=== PATIENT | male | born 1945 | race Caucasian/White ===

== ENCOUNTER 2025-01-16 18:44 | Emergency (ER) | payer MEDICARE, SELFPAY ==
[2025-01-16] VITALS (8 sets, daily range): BP systolic 137–171; BP diastolic 68–104; BMI 25.1
[2025-01-16] MEDS: NSS 1000 IV (20:21)
[2025-01-16 20:38] LABS: % Basophils 0.5 % (0-2); % Eosinophils 1.3 % (0-6); % Immature Granulocytes 0.3 % (0-0.5); % Lymphocytes 24.2 % (20.5-51.1); % Monocytes 7.3 % (1.7-9.3); % Neutrophils 66.4 % (42.2-75.2); Absolute Eosinophils 0.1 10^3/uL (0-0.7); Absolute Lymphocytes 2.1 10^3/uL (1.2-3.4); Absolute Monocytes 0.6 10^3/uL (0.1-0.6); Absolute Neutrophils 5.9 10^3/uL (1.4-6.5); Hematocrit 42.7 % (39.0-52.0); Hemoglobin 14.9 g/dL (13.0-18.0); Mean Corp Hgb Conc. 34.9 g/dL (33.0-37.0); Mean Corpuscular Hgb 30.7 pg (27.0-31.0); Nucleated Red Blood Cells % 0 % (-); Platelet Count 127 10^3/uL (130-400); Red Blood Cell Count 4.85 10^6/uL (4.70-6.10); Red Cell Dist. Width 12.1 % (11.5-14.5); White Blood Cell Count 8.8 10^3/uL (4.8-10.8)
[2025-01-16 20:43] LABS: Urine Albumin 3+ (Neg - Trace); Urine Bilirubin Negative (Negative); Urine Character Slightly Cloudy (Clear); Urine Color Amber; Urine Glucose Negative (Negative); Urine Ketone Negative (Negative); Urine Leukocyte 1+ (Negative); Urine Nitrite Negative (Negative); Urine Occult Blood 4+ (Negative); Urine Specific Gravity 1.015 (<1.030); Urine Urobilinogen 1+ (Neg - 1+)
--- NOTE | 2025-01-16 20:43 | ED.GENMED ---
History of Present Illness
General
Chief Complaint: Urinary Symptoms
Time Seen by Provider: 01/16/25 19:52
History of Present Illness
History of Present Illness:
79-year-old male with history of A-fib on Eliquis presenting for hematuria. Patient reports symptoms started today. Denies any issues with bleeding on thinners in the past. Does have history of kidney stones, however denies any back pain or
abdominal pain. Denies any weakness or lightheadedness. Denies dysuria. Denies chest pain or difficulty breathing. Denies any fever. Reports that the urine is bright red. Denies any additional acute medical complaints
Past History
Past History
ED Past Medical History: Arrthythmia (Atrial fib), HTN and Hypercholesterolemia
ED Past Surgical History: Cardiac (pacemaker)
Social History
Tobacco: Former smoker
Alcohol: Occasional
Personal:
Living: with family
Phy Exam
Physical Exam
Physical Exam:
General: Well-appearing, no clinical signs of dehydration, nontoxic and in no acute distress
HEENT: protecting airway
Neck: appears supple
CV: Normal heart rate, regular rhythm, no evidence of cyanosis
Resp: No accessory muscle use, no increased work of breathing, lungs clear to auscultation bilaterally
Abd: Soft and non-distended, no tenderness to palpation
Extremities: No deformities, no swelling
Neuro: alert, no focal neurologic deficit
: deferred
Rectal: deferred
Psych: Normal affect
Skin: Intact
Course
Orders/Labs/Results
Orders:
Orders
01/16/25 20:02
0.9% Sodium Chloride 1000 ml [Nss] 1,000 ml IV BOLUS
Renal & Bladder US [US Renal With Bladder] Urgent
Comment:
Reason For Exam: hematuria
01/16/25 20:25
Complete Blood Count/With Diff Urgent
Urinalysis Reflex To Culture Urgent
Date Specimen was Collected: 01/16/25
Time Specimen was Collected: 20:10
Urine Microscopic Reflex Cult Urgent
Urine Culture Urgent
CAMELIA Source: U
Specimen Description:
Date Specimen was Collected: 01/16/25
Time Specimen was Collected: 20:10
01/16/25 20:56
Comprehensive Metabolic Panel Urgent
Abnormal Lab Results
01/16/25 01/16/25
20:25 20:56
Plt Count 127 L 10^3/uL
(130-400)
MPV 12.0 H fL
(7.4-10.4)
BUN 25 H mg/dl
(9-20)
Glucose 118 H mg/dl
(70-99)
Total Protein 5.6 L g/dl
(6.3-8.2)
Ur Occult Blood Reflex 4+ A
(Negative)
Leukocyte Esterase Rfl 1+ A
(Negative)
Urine RBC >100 A /HPF
(0-2)
Urine WBC (Reflex) 11-15 A /HPF
(0-5)
Urine Bacteria (Reflex) Moderate A
(Negative)
Urine Albumin (Reflex) 3+ A
(Neg - Trace)
01/16/25 20:25
01/16/25 20:56
Vital Signs
Initial and Last Documented VS:
Initial Vital Signs
Temp Pulse Resp BP Pulse Ox
98.2 F 78 16 164/84 96
01/16/25 18:47 01/16/25 18:47 01/16/25 18:47 01/16/25 18:47 01/16/25 18:47
Last Documented Vital Signs
Temp Pulse Resp BP Pulse Ox
98.2 F 84 16 162/93 98
01/16/25 18:47 01/16/25 23:02 01/16/25 20:00 01/16/25 23:02 01/16/25 23:02
MDM/Problems Addressed
MDM/Problems Addressed:
79-year-old male with history of A-fib on Eliquis presenting to the emergency department for hematuria. Vital signs on arrival are significant for mild hypertension.
On exam patient is resting comfortably, no acute distress or discomfort. Patient with no hemodynamic instability, low suspicion for any serious hemorrhage. Suspect possibly from anticoagulation versus UTI. Patient without any complaint of
pain, no CVA tenderness, no abdominal pain without concern for kidney stone. Will screen with laboratory analysis and check urinalysis. Will administer IV fluids and attempt to clear patient's urine
23:30 -patient's urine has appropriately cleared. Hemoglobin within normal limits. Bladder ultrasound without any significant acute pathology. Patient has known history of BPH. He remains asymptomatic. He has an appointment coming up with his
urologist on Sunday. Feel stable for discharge. Advised holding his Eliquis tonight, resuming tomorrow as long as urine remains clear. Return precautions discussed and patient verbalized understanding
*Critical Care Note
Total Time (30-74mins, 75-104mins- exclusive of procedures): Not Applicable
ED Attending Note
-
Portions of this chart may have been created with voice recognition software.� Occasional wrong word or��sound alike� substitutions may have occurred due to the inherent limitations of voice recognition software.
Discharge Plan
Departure
Prescriptions:
No Action
atenolol 50 MG tablet
50 mg PO BID
irbesartan 300 MG tablet
300 mg PO DAILY
rosuvastatin [Crestor] 5 MG tablet
5 mg PO .3 TIMES WEEKLY
fenofibrate 160 MG tablet
160 mg PO DAILY
apixaban [Eliquis] 5 MG tablet
5 mg PO BID
valacyclovir 500 MG tablet
1,000 mg PO TID Qty: 42 0RF
Referrals:
Laura Bower MD [Family Provider] -
Interventions
Interventions:
*Risk Screen - Suicide Last Done: 01/16/25 18:47
*General Assessment Last Done: 01/16/25 18:47
*Neglect/Abuse Screening Last Done: 01/16/25 19:57
*ED- Fall Risk Assessment Last Done: 01/16/25 19:57
*ED COVID-19 Vaccine History Last Done: 01/16/25 18:47
ED-Male Genitourinary Assessment Last Done: 01/16/25 19:57
Discharge Date and Time
Print Language: TAMAZIGHT
[2025-01-16 20:57] LABS: Urine Red Blood Cell >100 /HPF (0-2); Urine Squamous Cell 0-2 /LPF (Few)
[2025-01-16 20:58] LABS: Urine Bacteria Moderate (Negative)
[2025-01-16 21:29] LABS: ALT (SGPT) 13 U/L (0-50); AST (SGOT) 17 U/L (17-59); Albumin 3.6 g/dl (3.5-5.0); Alkaline Phosphatase 61 U/L (38-126); Blood Urea Nitrogen 25 mg/dl (9-20); Calcium 9.4 mg/dl (8.4-10.2); Carbon Dioxide 24 mmol/L (22-30); Chloride 107 mmol/L (98-107); Estimated Creatinine Clearance 59 ml/min; Glucose 118 mg/dl (70-99); Potassium 4.1 mmol/L (3.5-5.1); Sodium 138 mmol/L (135-145); Total Protein 5.6 g/dl (6.3-8.2); eGFR > 60.00
== END 2025-01-16 23:55 | disposition home or self-care (01) ==
LOC: EMR 18:44
PROVIDERS: EMERGENCY PHYSICIAN Student in an Organized Health Care Education/Training Program; FAMILY PHYSICIAN Internal Medicine
DX: R31.9 Hematuria, unspecified (principal); I48.91 Unspecified atrial fibrillation; I10 Essential (primary) hypertension; E78.00 Pure hypercholesterolemia, unspecified; N40.0 Benign prostatic hyperplasia without lower urinary tract symptoms; Z79.01 Long term (current) use of anticoagulants; Z87.442 Personal history of urinary calculi; Z87.891 Personal history of nicotine dependence; Z95.0 Presence of cardiac pacemaker
CPT/HCPCS: 99284; 76770; 80053; 81003; 81015; 85025; 87086

== ENCOUNTER 2025-03-21 02:49 | Emergency (ER) | payer MEDICARE, SELFPAY ==
[2025-03-21] MEDS: TORADOL 15 MG IV (03:08)
[2025-03-21] MEDS: ZOFRAN 4 MG IV (03:08)
[2025-03-21 03:31] LABS: % Basophils 0.7 % (0-2); % Eosinophils 1.9 % (0-6); % Immature Granulocytes 0.3 % (0-0.5); % Lymphocytes 37.1 % (20.5-51.1); % Monocytes 6.8 % (1.7-9.3); % Neutrophils 53.2 % (42.2-75.2); Absolute Basophils 0.1 10^3/uL (0-0.2); Absolute Eosinophils 0.2 10^3/uL (0-0.7); Absolute Lymphocytes 4.2 10^3/uL (1.2-3.4); Absolute Monocytes 0.8 10^3/uL (0.1-0.6); Hematocrit 45.9 % (39.0-52.0); Hemoglobin 16.3 g/dL (13.0-18.0); Mean Corp Hgb Conc. 35.5 g/dL (33.0-37.0); Mean Corpuscular Hgb 30.6 pg (27.0-31.0); Mean Corpuscular Volume 86.3 fL (80.0-94.0); Mean Platelet Volume 11.9 fL (7.4-10.4); Nucleated Red Blood Cells % 0 % (-); Platelet Count 195 10^3/uL (130-400); Red Blood Cell Count 5.32 10^6/uL (4.70-6.10); Red Cell Dist. Width 12.7 % (11.5-14.5); White Blood Cell Count 11.3 10^3/uL (4.8-10.8)
[2025-03-21 03:49] LABS: ALT (SGPT) 16 U/L (0-50); AST (SGOT) 19 U/L (17-59); Albumin 4.4 g/dl (3.5-5.0); Alkaline Phosphatase 69 U/L (38-126); Blood Urea Nitrogen 26 mg/dl (9-20); Calcium 9.8 mg/dl (8.4-10.2); Carbon Dioxide 19 mmol/L (22-30); Chloride 110 mmol/L (98-107); Glucose 129 mg/dl (70-99); Potassium 3.7 mmol/L (3.5-5.1); Sodium 140 mmol/L (135-145); Total Bilirubin 1.1 mg/dl (0.2-1.3); Total Protein 6.5 g/dl (6.3-8.2); eGFR > 60.00
[2025-03-21 05:04] VITALS: BP 144/79
[2025-03-21 05:09] VITALS: BMI 25.1
[2025-03-21 06:43] LABS: Urine Albumin 2+ (Neg - Trace); Urine Bilirubin Negative (Negative); Urine Character Clear (Clear); Urine Color Yellow; Urine Glucose Negative (Negative); Urine Ketone Negative (Negative); Urine Leukocyte 1+ (Negative); Urine Nitrite Negative (Negative); Urine Occult Blood 4+ (Negative); Urine Urobilinogen 2+ (Neg - 1+)
[2025-03-21 07:00] LABS: Urine Squamous Cell 0-2 /LPF (Few)
[2025-03-21 07:01] LABS: Urine Bacteria Few (Negative); Urine Red Blood Cell 50-60 /HPF (0-2)
[2025-03-21 07:30] VITALS: BP 145/74
--- NOTE | 2025-03-21 07:35 | ED.GENMED ---
History of Present Illness
General
Chief Complaint: Flank Pain
Source: patient
Exam Limitations: none
Time Seen by Provider: 03/21/25 05:49
History of Present Illness
History of Present Illness:
80-year-old male sudden onset of left flank pain at 2 AM. History of kidney stones. Feels similar. No fever chills or systemic symptoms. No urinary symptoms. Currently pain-free
Past History
Past History
ED Past Medical History: Arrthythmia (Atrial fib), HTN and Hypercholesterolemia
ED Past Surgical History: Cardiac (pacemaker)
Social History
Tobacco: Former smoker
Alcohol: Occasional
Personal:
Living: with family
Review of Systems
Review of Systems
All Other Systems: Not applicable
Constitutional: Denies fever or chills
Phy Exam
Physical Exam
Physical Exam:
GENERAL: Alert and oriented in no apparent distress
EYE: Orbits normal.
NECK: Supple
CARDIAC: Regular rate and rhythm without any obvious murmurs.
LUNGS: Clear breath sounds,normal
ABDOMEN: Soft, without focal tenderness or distention. No CVA tenderness
NEUROLOGICAL: Alert and oriented , grossly non-focal
SKIN: Warm and dry, no rash or lesion, no discoloration, skin intact.
MUSCULOSKELETAL: No edema,no deformity.Good color
PSYCH: Normal and appropriate interaction.
Course
Orders/Labs/Results
Orders:
Orders
03/21/25 02:59
Ketorolac [Toradol] 15 mg .ROUTE .STK-MED ONE
Ondansetron Injectable [Zofran] 4 mg .ROUTE .STK-MED ONE
03/21/25 03:02
CT Abd/pel Without Iv Or Oral Urgent
Comment:
Reason For Exam: left flank pain, hx kidney stones
03/21/25 03:07
Ondansetron Injectable [Zofran] 4 mg IV NOW STA
03/21/25 03:08
Ketorolac [Toradol] 15 mg IV NOW STA
03/21/25 03:11
Complete Blood Count/With Diff Urgent
Comprehensive Metabolic Panel Urgent
03/21/25 06:21
Urinalysis Reflex To Culture Urgent
Date Specimen was Collected: 03/21/25
Time Specimen was Collected: 03:00
Urine Microscopic Reflex Cult Urgent
Urine Culture Urgent
CAMELIA Source: U
Specimen Description:
Date Specimen was Collected: 03/21/25
Time Specimen was Collected: 03:00
03/21/25 07:40
Cefdinir [Omnicef] 300 mg PO NOW STA
Abnormal Lab Results
03/21/25 03/21/25
03:11 06:21
WBC 11.3 H 10^3/uL
(4.8-10.8)
MPV 11.9 H fL
(7.4-10.4)
Absolute Lymphs (auto) 4.2 H 10^3/uL
(1.2-3.4)
Absolute Monos (auto) 0.8 H 10^3/uL
(0.1-0.6)
Chloride 110 H mmol/L
(98-107)
Carbon Dioxide 19 L mmol/L
(22-30)
BUN 26 H mg/dl
(9-20)
Glucose 129 H mg/dl
(70-99)
Ur Occult Blood Reflex 4+ A
(Negative)
Urine Urobilinogen 2+ A
(Neg - 1+)
Leukocyte Esterase Rfl 1+ A
(Negative)
Urine RBC 50-60 A /HPF
(0-2)
Urine Bacteria (Reflex) Few A
(Negative)
Urine Albumin (Reflex) 2+ A
(Neg - Trace)
03/21/25 03:11
03/21/25 03:11
Vital Signs
Initial and Last Documented VS:
Initial Vital Signs
Temp Pulse Resp Pulse Ox
97.7 F 66 24 99
03/21/25 02:54 03/21/25 02:54 03/21/25 02:54 03/21/25 02:54
Last Documented Vital Signs
Temp Pulse Resp BP Pulse Ox
98.8 F 111 16 145/74 97
03/21/25 07:30 03/21/25 07:30 03/21/25 07:30 03/21/25 07:30 03/21/25 07:38
MDM/Problems Addressed
Differential Diagnosis Includes:
Patient with a millimeter proximal ureteral stone with hydronephrosis. Clinically stable. Nothing clinically to support infectious issue. Urinalysis likely negative but a few bacteria. Minimal white count. Results of CT were reviewed with
urology along with the urine results. Continue Flomax pain management. We will cover with antibiotics although likely not infected. Patient remains asymptomatic and comfortable with this approach
*Radiology
Radiology exam reviewed: radiology read reviewed (CT scan 5 x 6 x 6 proximal ureteral stone with moderate hydro nonobstructing stones hepatic density)
*Pulse Oximetry
SaO2: 97
Oxygen Mode of Delivery: Room air
Patient hypoxic: no
*Critical Care Note
Total Time (30-74mins, 75-104mins- exclusive of procedures): Not Applicable
Update Note
Update Note:
Patient was updated. Remained stable and still comfortable with discharge. Copy of CT report given to patient to follow-up hepatic lesion. He is aware of the hemangioma
ED Attending Note
-
Portions of this chart may have been created with voice recognition software.� Occasional wrong word or��sound alike� substitutions may have occurred due to the inherent limitations of voice recognition software.
Discharge Plan
Departure
Patient Disposition: Home (Routine Discharge)
Date of Disposition: 03/21/25
Time of Disposition: 07:37
Patient with high blood pressure during this ER visit?: Yes
Discharge Problem:
Left ureteral kidney stone
Instructions: Kidney Stones (DC), Flank Pain (DC), BLOOD PRESSURE
Prescriptions:
New
hydrocodone-acetaminophen 5-325 mg tablet
1 tab PO Q6H PRN (Reason: Pain) Qty: 14 0RF
cefdinir 300 mg capsule
300 mg PO BID 5 Days Qty: 10 0RF
No Action
atenolol 50 MG tablet
50 mg PO BID
irbesartan 300 MG tablet
300 mg PO DAILY
rosuvastatin [Crestor] 5 MG tablet
5 mg PO .3 TIMES WEEKLY
fenofibrate 160 MG tablet
160 mg PO DAILY
apixaban [Eliquis] 5 MG tablet
5 mg PO BID
valacyclovir 500 MG tablet
1,000 mg PO TID Qty: 42 0RF
Referrals:
Reinaldo Alvarado MD [Active, Urology] - Follow up in 5-7 days
Laura Bower MD [Family Provider, Internal Medicine]
Activity Restrictions/Additional Instructions:
Your prescriptions were sent to your pharmacy
As we discussed, Tylenol or the stronger pain medication as needed
Return immediately with any infectious symptoms or increasing pain
Interventions
Interventions:
*Risk Screen - Suicide Last Done: 03/21/25 02:54
*General Assessment Last Done: 03/21/25 02:54
*Neglect/Abuse Screening Last Done: 03/21/25 04:56
*ED- Fall Risk Assessment Last Done: 03/21/25 04:56
*ED COVID-19 Vaccine History Last Done: 03/21/25 04:56
*Nursing Disposition Last Done: 03/21/25 07:58
CN-Rdxcsx-Rhrtdgntai Assessment Last Done: 03/21/25 04:56
ED-Male Genitourinary Assessment Last Done: 03/21/25 05:01
Discharge Date and Time
Discharge Date/Time: 03/21/25 07:58
Print Language: BULGARIAN
[2025-03-21] MEDS: OMNICEF 300 MG PO (07:49)
== END 2025-03-21 07:58 | disposition home or self-care (01) ==
LOC: EMR 02:49
PROVIDERS: Emergency Medicine; EMERGENCY PHYSICIAN Emergency Medicine; FAMILY PHYSICIAN Internal Medicine
DX: N13.2 Hydronephrosis with renal and ureteral calculous obstruction (principal); I10 Essential (primary) hypertension; Z87.891 Personal history of nicotine dependence; Z87.442 Personal history of urinary calculi
CPT/HCPCS: 99285; 96374; 96375; 74176; 80053; 81003; 81015; 85025; 87086

== ENCOUNTER 2025-03-24 10:29 | Inpatient (IN) | payer MEDICARE, SELFPAY ==
[2025-03-24] VITALS (20 sets, daily range): BP systolic 112–173; BP diastolic 72–102; BMI 24.5
--- NOTE | 2025-03-24 04:07 | ED.GENMED ---
History of Present Illness
General
Chief Complaint: Flank Pain
Source: patient, spouse, previous radiology exam (CT abdomen pelvis March 21 showing 6 mm stone left proximal ureter with mild hydronephrosis. Multiple additional bilateral intrarenal stones.) and previous hospital records (ED visit March 21 when
patient presented with acute left flank pain. CAT scan showing 6 mm proximal left ureteral stone with mild hydronephrosis.)
Exam Limitations: none
Time Seen by Provider: 03/24/25 03:48
Nursing documentation reviewed up to this point in time: agreed with
History of Present Illness
History of Present Illness:
This is an 80-year-old gentleman with history of kidney stones who presented to this ED data analysis intern March 21 with complaints of abrupt onset of left flank pain accompanied with nausea. Pain and nausea resolved after 1 IV dose of Toradol and Zofran.
CAT scan showed a 6 mm proximal left ureteral stone with mild hydronephrosis. There was also note of multiple bilateral intrarenal stones. Labs showed a very mildly elevated white blood cell count, normal renal function. Urinalysis with few
bacteria.
He is chronically maintained on Flomax. He was discharged to home with a prescription for Vicodin for as needed pain as well as cefdinir for potential UTI. Urine culture has since returned negative.
He has an appointment scheduled with urology, Dr. Alvarado at 11 AM today.
Patient has been feeling well until tonight with return of moderate left flank pain accompanied with nausea without vomiting. He has not had a fever. He has been urinating well. No dysuria and urgency and or hematuria.
He took a dose of Vicodin without relief. Since arrival to the ED however admits to moderate improvement but now pain is again returning.
Patient has history of A-fib chronically maintained on Eliquis. History of hypertension, GERD.
Past History
Past History
ED Past Medical History: Arrthythmia (Atrial fib-chronically maintained on Eliquis), GERD, HTN, Hypercholesterolemia and Other (Kidney stones)
ED Past Surgical History: Cardiac (pacemaker) and Other (Hernia repair)
Social History
Tobacco: Former smoker
Alcohol: Occasional
Personal:
Living: with family
Employment: Retired
Family History
Family History: Other (Noncontributory)
Phy Exam
Physical Exam
Physical Exam:
GENERAL: 80-year-old gentleman appears his stated age, bright and alert, pleasant, appears in no acute distress. is accompanying.
EYE: anicteric
NECK: Supple, nontender, no meningismus, no significant adenopathy.
ENT: oral mucosa is moist. No rhinorrhea.
CARDIAC: Regular rate and rhythm. no murmur.
LUNGS: Clear breath sounds bilaterally, no acute respiratory distress, no wheezes/rales/rhonchi
ABDOMEN: Soft, nondistended, without focal tenderness, no r/g, mild left CVA tenderness with percussion only. Normoactive BS.
NEUROLOGICAL: Alert and oriented x3, no focal neuro deficits. Gait is steady.
SKIN: Warm and dry, normal color, skin intact. No rash.
MUSCULOSKELETAL: No C/C/E. peripheral pulses are full and equal b/l. No palpable tenderness.
PSYCH: Normal and appropriate interaction.
Course
Orders/Labs/Results
Orders:
Orders
03/24/25 03:42
Urinalysis Reflex To Culture Urgent
Date Specimen was Collected: 03/24/25
Time Specimen was Collected: 03:42
Urine Microscopic Reflex Cult Urgent
Urine Culture Urgent
CAMELIA Source: U
Specimen Description:
Date Specimen was Collected: 03/24/25
Time Specimen was Collected: 03:42
03/24/25 04:05
CR Abdomen - 2 Views Urgent
Comment:
Reason For Exam: recurrent L flank pain. 6 mm prox L uret stone
Renal & Bladder US [US Renal With Bladder] Urgent
Comment:
Reason For Exam: recurrent L flank pain. Hx 6 mm prox L uret stone
03/24/25 04:18
Basic Metabolic Panel Urgent
03/24/25 04:21
Ketorolac [Toradol] 15 mg .ROUTE .STK-MED ONE
Ondansetron Injectable [Zofran] 4 mg .ROUTE .STK-MED ONE
03/24/25 04:22
Ondansetron Injectable [Zofran] 4 mg IV NOW STA
03/24/25 04:23
Ketorolac [Toradol] 15 mg IV NOW STA
03/24/25 04:34
0.9% Sodium Chloride 500 ml [Nss] 500 ml IV BOLUS
03/24/25 05:00
0.9% Sodium Chloride 500 ml [Nss] 500 ml IV 500 mls/hr
Abnormal Lab Results
03/24/25 03/24/25
03:42 04:18
BUN 32 H mg/dl
(9-20)
Glucose 121 H mg/dl
(70-99)
Ur Occult Blood Reflex 4+ A
(Negative)
Urine Urobilinogen 2+ A
(Neg - 1+)
Urine RBC >100 A /HPF
(0-2)
Urine Bacteria (Reflex) Many A
(Negative)
Urine Albumin (Reflex) 2+ A
(Neg - Trace)
03/24/25 04:18
Vital Signs
Initial and Last Documented VS:
Initial Vital Signs
Temp Pulse Resp BP Pulse Ox
97.8 F 110 22 173/102 98
03/24/25 03:28 03/24/25 03:28 03/24/25 03:28 03/24/25 03:28 03/24/25 03:28
Last Documented Vital Signs
Temp Pulse Resp BP Pulse Ox
97.8 F 78 16 156/79 98
03/24/25 03:28 03/24/25 05:39 03/24/25 05:39 03/24/25 05:39 03/24/25 05:39
MDM/Problems Addressed
Differential Diagnosis Includes:
Patient with known left ureteric stone presents with recurrent renal colic.
Concern for migration of stone versus persistent�proximal position.
Concern for progression of hydronephrosis/obstruction, concern for acute kidney injury related to ureteral obstruction.
Recent urine culture negative and patient has not had a fever nor UTI symptoms. Pyelonephritis is unlikely.
He did well with 1 small IV dose of Toradol thus we will give a dose of Toradol now as well as Zofran.
Will check BMP.
Will check renal ultrasound as well as KUB.
Chronic conditions affecting care: HTN, Arrhythmia and Kidney disease (Kidney stones)
*Radiology
Radiology exam reviewed: radiology read reviewed
*Pulse Oximetry
SaO2: 98
Oxygen Mode of Delivery: Room air
Patient hypoxic: no
*Critical Care Note
Total Time (30-74mins, 75-104mins- exclusive of procedures): Not Applicable
Update Note
Update Note:
Patient is much more comfortable after a small IV dose of Toradol.
Ultrasound shows persistent proximal ureteral stone measuring 8 mm x 5 mm as well as an additional 4 to 5 mm stone just proximal to the stone with moderate to severe hydronephrosis on the left.
Creatinine has trended up from 0.9 to now 1.3.
Due to large proximal left ureteral stone that appears to have not budged over the past several days with an additional stone proximal to this resulting in severe hydronephrosis and acute kidney injury, case discussed with urology and will plan for
OR today.
Due to advanced age, multiple medical problems patient will be admitted to hospital service with consult to urology.
Will continue IV fluids, keep n.p.o. Obviously will hold Eliquis.
ED Attending Note
-
Portions of this chart may have been created with voice recognition software.� Occasional wrong word or��sound alike� substitutions may have occurred due to the inherent limitations of voice recognition software.
Discharge Plan
Departure
Patient Disposition: Admit
Date of Disposition: 03/24/25
Time of Disposition: 06:37
Admit to: Med/Surg
Presentation/result/management discussed w/ accepting MD/DO: Hospitalist
Condition: Fair
Discharge Problem:
Calculus of proximal left ureter, Severe left hydronephrosis related to pr, Acute kidney injury
Prescriptions:
No Action
atenolol 50 MG tablet
100 mg PO BID
irbesartan 300 MG tablet
300 mg PO DAILY
rosuvastatin [Crestor] 5 MG tablet
5 mg PO DAILY
fenofibrate 160 MG tablet
160 mg PO DAILY
Rx Instructions:
DISC
Eliquis 5 MG tablet
5 mg PO BID
valacyclovir 500 MG tablet
1,000 mg PO TID Qty: 42 0RF
Rx Instructions:
disc
hydrocodone-acetaminophen 5-325 mg tablet
1 tab PO Q6H PRN (Reason: Pain) Qty: 14 0RF
cefdinir 300 mg capsule
300 mg PO BID 5 Days Qty: 10 0RF
Flomax
0.4 mg PO DAILY
hydrochlorothiazide
25 mg PO PRN PRN (Reason: o)
Rx Instructions:
For SBP>140 DBP>90
Referrals:
Laura Bower MD [Family Provider, Internal Medicine]
Interventions
Interventions:
*Risk Screen - Suicide Last Done: 03/24/25 03:28
*General Assessment Last Done: 03/24/25 03:39
*Neglect/Abuse Screening Last Done: 03/24/25 03:28
*ED- Fall Risk Assessment Last Done: 03/24/25 03:39
*ED COVID-19 Vaccine History Last Done: 03/24/25 03:39
KC-Ccicim-Ygeryfaiai Assessment Last Done: 03/24/25 03:49
ED-Male Genitourinary Assessment Last Done: 03/24/25 03:40
Discharge Date and Time
Print Language: HEBREW
[2025-03-24 04:11] LABS: Urine Character Slightly Cloudy (Clear)
[2025-03-24 04:13] LABS: Urine Red Blood Cell >100 /HPF (0-2); Urine Squamous Cell >30 /LPF (Few)
[2025-03-24] MEDS: ZOFRAN 4 MG IV (04:23)
[2025-03-24] MEDS: TORADOL 15 MG IV (04:24)
[2025-03-24] MEDS: NSS 500 IV (04:34)
[2025-03-24 05:01] LABS: Blood Urea Nitrogen 32 mg/dl (9-20); Calcium 10.1 mg/dl (8.4-10.2); Carbon Dioxide 26 mmol/L (22-30); Chloride 105 mmol/L (98-107); Estimated Creatinine Clearance 49 ml/min; Glucose 121 mg/dl (70-99); Potassium 4.4 mmol/L (3.5-5.1); Sodium 138 mmol/L (135-145); eGFR 55.19
[2025-03-24] MEDS: NSS 1000 IV (06:49)
[2025-03-24] MEDS: TENORMIN 100 MG PO ×2 (06:53→20:38)
[2025-03-24] MEDS: AVAPRO 300 MG PO (06:58)
--- NOTE | 2025-03-24 07:20 | CONS.URO ---
Consultation
-
Date/Time Consultation Performed: 03/24/2025 0720
Requesting Provider: ED
Performing Provider: Angelo
Reason for Consultation: Left ureteral stone
Medical History
History of Present Illness
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 Pain and nausea resolved after 1 IV dose of Toradol and Zofran.
CAT scan showed a 6 mm proximal left ureteral stone with mild hydronephrosis. There was also note of multiple bilateral intrarenal stones. Labs showed a very mildly elevated white blood cell count, normal renal function. Urinalysis with few
bacteria.
He is chronically maintained on Flomax. He was discharged to home with a prescription for Vicodin for as needed pain as well as cefdinir for potential UTI. Urine culture has since returned negative.
He has an appointment scheduled with urology, Dr. Alvarado at 11 AM today.
Patient has been feeling well until tonight with return of moderate left flank pain accompanied with nausea without vomiting. He has not had a fever. He has been urinating well. No dysuria and urgency and or hematuria.'
long-standing patient of Dr Prince Gonzalez -- per patient, despite innumerable stones, no metabolic stone evaluation has ever been performed
Past Medical History
Past Medical History: Other (Arrthythmia (Atrial fib-chronically maintained on Eliquis), GERD, HTN, Hypercholesterolemia, Kidney stones, Cardiac (pacemaker))
Social History
Personal:
Living: With Family
Family History
Family History: Other (kidney stones)
Allergies/Home Medications
Allergies
Allergy/AdvReac Type Severity Reaction Status Date / Time
No Known Allergies Allergy Verified 03/24/25 03:30
Home Medications
�Medication �Instructions �Recorded �Confirmed �Type
apixaban 5 mg tablet (Eliquis) 5 mg PO BID 01/26/19 03/24/25 History
atenolol 50 mg tablet 100 mg PO BID 01/26/19 03/24/25 History
fenofibrate 160 mg tablet 160 mg PO DAILY 01/26/19 03/24/25 History
irbesartan 300 mg tablet 300 mg PO DAILY 01/26/19 03/24/25 History
rosuvastatin 5 mg tablet (Crestor) 5 mg PO DAILY 01/26/19 03/24/25 History
valacyclovir 500 mg tablet 1,000 mg (2 x 500 mg) PO TID #42 01/26/19 03/24/25 Rx
tabs
cefdinir 300 mg capsule 300 mg PO BID 5 days #10 caps 03/21/25 03/24/25 Rx
hydrocodone 5 mg-acetaminophen 325 1 tab PO Q6H PRN Pain #14 tabs 03/21/25 03/24/25 Rx
mg tablet
Flomax 0.4 mg PO DAILY 03/24/25 03/24/25 History
hydrochlorothiazide 25 mg PO PRN PRN o 03/24/25 03/24/25 History
Physical Exam
Vital Signs
Vital Signs
Temp Pulse Resp BP Pulse Ox
97.8 F 80 14 165/96 96
03/24/25 03:28 03/24/25 07:04 03/24/25 07:04 03/24/25 07:04 03/24/25 07:04
Lab / Testing Results
Laboratory Results
03/24/25 04:18
Physical Exam
elderly adult male on [facility]
General: No Apparent Distress and Comfortable
HEENT: Normocephalic
Respiratory: Non Labored Respirations
GI: Soft, Non Tender and Non Distended
Genito-urinary: No Costovertebral Tend
Neuro: Awake and Alert
Psych: Calm
Assessment / Plan
-
Left Ureteral Stone: mid, obstructing
numerous bilateral renal stones
recurrent pain
no evidence of infection
Plan: will post for OR today; consent robby and brought to OR
Data Reviewed
-
CT Scan: Image personally visualized and interpreted
Lab Data: Labs Reviewed
Old Records: Reviewed
--- NOTE | 2025-03-24 09:47 | CM ---
Patient seen at bedside in ED with and physicians. Patient lives with his in a 2 story home. Patient has no DME and uses the [employer] in [place]. Patient PCP Dr. Moreira. Patient is independent of ADL's and IADL's. Patient for
transportation when needed. CM will continue to follow for discharge planning needs.
Plan; home with no needs vs VN; pending medical treatment plan
--- NOTE | 2025-03-24 13:21 | HPS.HSE ---
Addendum entered and electronically signed by Laurie Montana MD 03/24/25 14:02:
I personally performed a history and physical exam of the patient and discussed management with the resident. I reviewed the resident's note and agree with the documented findings and plan of care HPI/CC.
GENERAL: well developed, well nourished, male in no apparent distress
HEENT: NC/AT
HEART: regular rate and rhythm, +S1, +S2
LUNGS : clear to auscultation bilaterally
ABDOM: soft, nontender, nondistended, + bowel sounds
EXT: no cyanosis, clubbing, or edema
NEUROLOGIC: grossly intact
: no CVA tenderness
BRIANA due to Moderate hydronephrosis of the left kidney secondary to obstructing left ureteral stone--stone noted on CT scan from 03/21 and Xray/US today 03/24--apprec urology--going to OR for stone removal and likely stent placement--NPO/IVF-hold
Eliquis--hold on ABX--pain meds--cont tamsulosin
Nausea--Continue Zofran 4 mg IV
Paroxysmal Atrial fibrillation-- rate controlled--Holding Eliquis prior to procedure--Continue atenolol 100 mg when able to take PO
Essential hypertension--Continue irbesartan 300 mg
GERD--Stable
DVT proph
code status -- full code
Original Note:
Family Physician
-
Family Physician: Laura Bower
Chief Complaint
-
Flank pain
History of Present Illness
The patient is an 80-year-old male with a history of kidney stones who presented to the emergency department on March 21 with left flank pain and nausea. The patient's pain and nausea resolved after 1 IV dose of Toradol and Zofran. CT of the
abdomen and pelvis conducted on 03/21/2025 showed a 6 mm stone within the proximal left ureter associated with left hydroureteronephrosis and left proximal hydroureter. There was also noted multiple bilateral intrarenal stones. Labs at that time
were unremarkable except for an elevated white blood cell count of 11.3 and urinalysis showed 4+ occult blood with many urine bacteria detected. Urine culture was negative. The patient was discharged home with Vicodin and cefdinir. The Vicodin
helped manage the pain a little bit but the pain continued to return. The patient returned to the emergency department on 03/24/2025 with the same symptoms. Patient was given IV Toradol which successfully treated the patient's pain. The patient was
admitted to the hospital for left ureteral stone with mild hydronephrosis and was scheduled for the OR with urology.
Medical History
Past Medical History
Past Medical History: Reports Arrhythmia (Atrial fibrillation on Eliquis), GERD, HTN and Hypercholesterolemia
Past Surgical History: Reports Cardiac (Pacemaker status) and Other (S/p hernia repair)
Additional Past Surgical History:
Pacemaker status and history of hernia repair
Social History
Tobacco: Former Smoker
Alcohol: Occasional
Drug: None
Personal:
Living: With Family
Employment: Not Employed
Family History
Family History: Other (The patient's sister, nephews, son, and daughter have frequent kidney stones. Calcium oxalate stones specifically)
Allergies / Home Medications
Allergies reflects when Allergies were last updated in [facility].
Home Medications with original date entered in [facility]
Allergy/Medication List:
Allergies
Allergy/AdvReac Type Severity Reaction Status Date / Time
No Known Allergies Allergy Verified 03/24/25 03:30
Home Medications
apixaban 5 mg tablet (Eliquis) 5 mg PO BID Blood Clot Prevention/Tx 01/26/19
irbesartan 300 mg tablet 300 mg PO DAILY Blood Pressure 01/26/19
cefdinir 300 mg capsule 300 mg PO BID 5 days #10 caps 03/21/25
atenolol 100 mg tablet 100 mg PO BID Blood Pressure 03/24/25
cholecalciferol (vitamin D3) 25 mcg (1,000 unit) tablet (Vitamin D3) 25 mcg PO DAILY Supplement 03/24/25
coQ10 (ubiquinol) 100 mg capsule 100 mg PO DAILY High Cholesterol 03/24/25
cyanocobalamin (vitamin B-12) 1,000 mcg tablet 1,000 mcg PO DAILY Supplement 03/24/25
hydrochlorothiazide 12.5 mg tablet 12.5 mg PO DAILYPRN PRN fluid 03/24/25
hydrocodone 5 mg-acetaminophen 325 mg tablet 1 tab PO Q6HPRN PRN severe Pain 03/24/25
rosuvastatin 10 mg tablet (Crestor) 10 mg PO QPM High Cholesterol 03/24/25
tamsulosin 0.4 mg capsule (Flomax) 0.4 mg PO QPM Urinary Issue 03/24/25
Review of Systems
-
A 12 point ROS was completed and negative except as noted: Yes
Constitutional: Reports No Symptoms and Other (Patient recently received IV Toradol which has effectively treated the patient's pain)
EENT: Reports No Symptoms
Respiratory: Reports No Symptoms
Cardiac: Reports No Symptoms
Abdomen/GI: Reports No Symptoms
: Reports No Symptoms
Musculoskeletal: Reports No Symptoms
Skin: Reports No Symptoms
Neurological: Reports No Symptoms
Endocrine: Reports No Symptoms
Hematologic/Lymphatic: Reports No Symptoms
Psych: Reports No Symptoms
Physical Exam
Vital Signs
Vital Signs
Temp Pulse Resp BP Pulse Ox
97.8 F 66 16 144/73 97
03/24/25 03:28 03/24/25 12:00 03/24/25 12:00 03/24/25 12:00 03/24/25 12:00
Physical Exam
General: Well Developed, Well Nourished, No Apparent Distress and Comfortable
HEENT: NormoCephalic, Anicteric and Moist mucous membranes
Respiratory: Clear
Cardiac: S1/S2 and Regular Rhythm
Breast: Deferred by me
GI: Soft, Non Tender and Normal Bowel Sounds
Rectal: Deferred by Provider
Musculoskeletal: No Clubbing, No Cyanosis and No Edema
Skin: Warm and Dry
Neuro: Awake, Alert, Oriented and No Motor Deficits
Hematologic/Lymphatic: No Lymphadenopathy
Psych: Calm
Laboratory Results
-
Labs
03/24/25 04:18
03/24/25 04:18
Impression/Plan
-
Assessment and plan:
- Moderate hydronephrosis of the left kidney secondary to left ureteral stone:
CT of the abdomen and pelvis conducted on 03/21/2025 showed a 6 mm stone within the proximal left ureter associated with mild left hydroureter nephrosis and left proximal hydroureter. Additional intrarenal stones were seen
Abdominal x-ray conducted on 03/24/2025 showed stones projecting over the renal shadow on each side. Stones projecting over the expected location of the proximal to mid left ureter measuring approximately 7 mm in diameter which is grossly unchanged
in position compared to prior CT
Renal ultrasound conducted on 03/24/2025 showed moderate hydronephrosis of the left kidney. Stone within the mid proximal to mid left ureter measuring 8 mm in diameter. Additional intrarenal stones on each side were seen. Prostatic enlargement was
also seen.
Patient is scheduled to go up to the OR with urology with Dr. Stephens -holding oral medications prior to procedure
IV fluid support
Urine analysis with urine culture
Pain management with acetaminophen and Percocet -may adjust depending on pain control
Tamsulosin 0.4 mg
Cefazolin for surgical prophylaxis
-Nausea: States
Continue Zofran 4 mg IV
- Atrial fibrillation: Stable
Holding Eliquis prior to procedure
Continue atenolol 100 mg
-Essential hypertension: Stable
Continue irbesartan 300 mg
-GERD: Stable
Continue to monitor
--- NOTE | 2025-03-24 17:59 | W.SUR.POST ---
Surgical Immediate Post Op
Note
Pre Op Diagnosisleft prox uretral stone
Post Op Diagnosis: multiple stones left proc=x urter [ steinstrasse ]
Procedure Performed: left ureteroscopy complex laser lithalopaxy with extraction and jj stent with retrograde pyelogram
Primary Surgeon:jazmyn
Secondary Surgeons:matt
Anesthesia: dr burris [facility]
Estimated Blood Loss: 2cc
Fluids: nss
Drains/Shunts: 6 fr 424 cm jj stent
Specimens/Cultures: stones
Doppler/Duplex/Angio (Y/N):
Complications: 0
Operative Findings: multope stomes trapped in prox left uretr
--- NOTE | 2025-03-24 18:50 | PTCARENOTE ---
Pt received into room on 2 . Pineda draining punch colored urine. Pt denies pain, n/v. Family was called from waiting room to see patient. Vital signs are WNL. Hand off to receiving retail shift supervisor 2 nurse performed
[2025-03-24] MEDS: PERCOCET 5/325 2 TABLET PO (19:36)
[2025-03-24] MEDS: FLOMAX 0.4 MG PO (19:36)
[2025-03-24] MEDS: OMNICEF 300 MG PO (20:37)
[2025-03-25 03:11] VITALS: BP 125/74
[2025-03-25 06:49] LABS: Hematocrit 40.9 % (39.0-52.0); Hemoglobin 14.3 g/dL (13.0-18.0); Mean Corp Hgb Conc. 35.0 g/dL (33.0-37.0); Mean Corpuscular Volume 87.2 fL (80.0-94.0); Platelet Count 153 10^3/uL (130-400); Red Cell Dist. Width 12.5 % (11.5-14.5)
[2025-03-25 07:20] LABS: ALT (SGPT) 11 U/L (0-50); AST (SGOT) 15 U/L (17-59); Albumin 3.5 g/dl (3.5-5.0); Alkaline Phosphatase 57 U/L (38-126); Blood Urea Nitrogen 29 mg/dl (9-20); Calcium 8.7 mg/dl (8.4-10.2); Carbon Dioxide 22 mmol/L (22-30); Chloride 107 mmol/L (98-107); Estimated Creatinine Clearance 58 ml/min; Glucose 105 mg/dl (70-99); Potassium 4.5 mmol/L (3.5-5.1); Sodium 135 mmol/L (135-145); Total Protein 5.5 g/dl (6.3-8.2); eGFR > 60.00
[2025-03-25 07:25] VITALS: BP 143/82
--- NOTE | 2025-03-25 08:09 | W.PN.HOSP.TC ---
Addendum entered and electronically signed by Laurie Montana MD 03/25/25 15:54:
I saw and evaluated the patient independently. I reviewed the resident�s note and agree with findings and plan as documented by Dr. Humphrey.
GENERAL: well developed, well nourished, male in no apparent distress
HEENT: NC/AT
HEART: regular rate and rhythm, +S1, +S2
LUNGS : clear to auscultation bilaterally
ABDOM: soft, nontender, nondistended, + bowel sounds
EXT: no cyanosis, clubbing, or edema
NEUROLOGIC: grossly intact
: no CVA tenderness
BRIANA due to Moderate hydronephrosis of the left kidney secondary to obstructing left ureteral stone--resolved--stone noted on CT scan from 03/21 and Xray/US today 03/24--apprec urology--s/p OR for stone removal and likely stent placement
03/24/25--restarted Eliquis--pain meds--cont tamsulosin--sorto cath removed and pt urinating on his own
Nausea--Continue Zofran 4 mg IV
Paroxysmal Atrial fibrillation-- rate controlled--Holding Eliquis prior to procedure, restarted--Continue atenolol 100 mg when able to take PO
Essential hypertension--Continue irbesartan 300 mg
GERD--Stable
DVT proph
code status -- full code
Original Note:
Today's Communication/Plan
-
Sorto catheter has been removed this morning and the patient is voiding on his own normally. Eliquis has been resumed. Patient will follow-up with urology in the outpatient setting. Patient believes that they are ready for discharge if there are
no barriers. We will move forward discharge planning.
Assessment / Plan
Assessment / Plan
Assessment and plan:
- Moderate hydronephrosis of the left kidney secondary to left ureteral stone:
CT of the abdomen and pelvis conducted on 03/21/2025 showed a 6 mm stone within the proximal left ureter associated with mild left hydroureter nephrosis and left proximal hydroureter. Additional intrarenal stones were seen
Abdominal x-ray conducted on 03/24/2025 showed stones projecting over the renal shadow on each side. Stones projecting over the expected location of the proximal to mid left ureter measuring approximately 7 mm in diameter which is grossly unchanged
in position compared to prior CT
Renal ultrasound conducted on 03/24/2025 showed moderate hydronephrosis of the left kidney. Stone within the mid proximal to mid left ureter measuring 8 mm in diameter. Additional intrarenal stones on each side were seen. Prostatic enlargement was
also seen.
Patient is scheduled to go up to the OR with urology with Dr. Stephens -holding oral medications prior to procedure
IV fluid support
Urine analysis with urine culture
Pain management with acetaminophen and Percocet -may adjust depending on pain control
Tamsulosin 0.4 mg
Patient tolerated his left ureteroscopy with stone removal and stent placement-operative findings showed a large amount of stones
Sorto catheter has been removed postoperatively and the patient is voiding normally
Creatinine is 1.1 on 03/25/2025 which is an improvement from the day prior at 1.3 on 03/24/2025
- Leukocytosis: Unresolved
Patient had a white blood cell count of 11.3 on 03/21/2025 -on 03/25/2025 white blood cell count is 12.6
Patient currently on cefdinir 300 mg p.o. twice daily
-Nausea: States
Continue Zofran 4 mg IV
- Atrial fibrillation: Stable
Holding Eliquis prior to procedure
Continue atenolol 100 mg
-Essential hypertension: Stable
Continue irbesartan 300 mg
-GERD: Stable
Continue to monitor
DVT prophylaxis
FULL CODE STATUS
Anticipated Discharge: Within 24 hours
Subjective/Interval History
-
Date of Service: March 25, 2025
Met with patient at the bedside. Overall, he is doing much better today and has no complaints at the present time. He is not in pain and watching television comfortably in bed. He is aware of the large amount of stones that were removed during
yesterday's procedure. He made a joke that he has many more kidney stones for his collection jar.
Objective Data
-
Labs:
Laboratory Results
03/25/25
05:57
WBC 12.6 H
Hgb 14.3
Hct 40.9
Plt Count 153 D
Sodium 135
Potassium 4.5
Chloride 107
Carbon Dioxide 22
BUN 29 H
Creatinine 1.1
Glucose 105 H
Calcium 8.7
Total Bilirubin 1.4 H
AST 15 L
ALT 11
Alkaline Phosphatase 57
Vital Signs:
Vital Signs
Temp Pulse Resp BP Pulse Ox
98 F 91 14 143/82 95
03/25/25 07:25 03/25/25 07:25 03/25/25 07:25 03/25/25 07:25 03/25/25 07:25
I&O
03/24/25 03/25/25 03/26/25
06:59 06:59 06:59
Intake Total 500 / 500 100 / 100
Output Total 850 / 850
Balance 500 / 500 -750 / -750
Review of Systems
-
History Source: Patient
All other systems: Reviewed and negative
Constitutional: Reports No Symptoms
EENT: Reports No Symptoms Reported
Respiratory: Reports No Symptoms
Cardiac: Reports No Symptoms
Abdomen/GI: Reports No Symptoms
Breast: Reports No Symptoms
Genitourinary: Reports No Symptoms
Musculoskeletal: Reports No Symptoms
Skin: Reports No Symptoms
Neuro: Reports No Symptoms
Physical Exam
-
General: Well Developed, Well Nourished and No Apparent Distress
HEENT: Normocephalic, Atraumatic and Moist Mucous Membranes
Respiratory: Clear to Auscultation and Non Labored Respirations; Negative Wheezes, Rales or Rhonchi
Cardiac: Regular Rhythm and S1/S2; Negative Murmur or Rub
Breast: Deferred by me
GI: Soft, Nontender, Nondistended and Normal Bowel Sounds
Musculoskeletal: No Clubbing, No Cyanosis and No Edema
Skin: Warm and Dry
Neuro: Awake, Alert, Oriented and AO x 3
Psych: Calm
[2025-03-25] MEDS: AVAPRO 300 MG PO (08:52)
[2025-03-25] MEDS: TENORMIN 100 MG PO (08:52)
[2025-03-25] MEDS: OMNICEF 300 MG PO (08:52)
--- NOTE | 2025-03-25 09:05 | W.PN.URO.CBU ---
Today's Communication / Plan
-
rswtart eliquis qawait voiding if no void buy noon or distention replace sorto
Assessment / Plan
-
restart eliquis home when ok by hospitalist
Diagnosis
-
Date of Service: March 25, 2025
-
Patient Diagnosis:left ureteral stones high grade obstruction
Post Op Day1:
Subjective
-
feels well afebrile
Objective
-
Vital Signs
Temp Pulse Resp BP Pulse Ox
98 F 91 14 143/82 95
03/25/25 07:25 03/25/25 07:25 03/25/25 07:25 03/25/25 07:25 03/25/25 07:25
Intake and Output
03/24/25 03/25/25 03/26/25
06:59 06:59 06:59
Intake Total 500 / 500 100 / 100 660 / 660
Output Total 850 / 850
Balance 500 / 500 -750 / -750 660 / 660
Intake:
Oral fluids 660 / 660
IV fluids (Total) 500 / 500 100 / 100
Normosol 100 / 100
Nss 500 ml @ 500 mls/hr IV .Q1H 500 / 500
[facility]AGE Rx#:[id number]
Output:
Urine, Sorto 850 / 850
Laboratory Results
03/25/25 05:57
03/25/25 05:57
Review of Systems
-
: Bleeding
Physical Exam
-
General - well developed, well nourished, no acute distress
Chest - clear bilaterally
Abdomen - soft, non-tender, positive bowel sounds, no CVAT, no incisional pain or distention
Genitalia - normal
Rectal - normal
Skin - warm & dry with no rash
Neuro - AOx3, no motor deficits
Extremities - no clubbing, no cyanosis, no edema
Incision - clean, dry
Dressing - clean, dry, intact
Care Review
Data Reviewed
Discussed with: Hospitalist and Nursing
[2025-03-25] MEDS: ELIQUIS 5 MG PO (09:31)
[2025-03-25 11:20] VITALS: BP 133/65
[2025-03-25] MEDS: PERCOCET 5/325 2 TABLET PO (12:53)
--- NOTE | 2025-03-25 14:41 | CM ---
Patient seen at bedside with physicians on . Patient also present. Patient stated that he wanted to go home and he did not need VN at this time. IMM completed and signed form placed on chart. CM will continue to follow for discharge
planning needs.
Plan; home with family supports
--- NOTE | 2025-03-25 15:12 | W.DCSUMMARY ---
Addendum entered and electronically signed by Laurie Montana MD 03/25/25 15:56:
Read, reviewed, and agree. See same day progress note for additional details. Time spent coordinating care, DC planning, review of DC plan of care with resident, transition of care, review of records in EMR, med rec, consults, notes, d/w
consultants, nursing, family, and CM = 31 minutes
Original Note:
Discharge Summary
Discharge Data
Date of Admission: 03/24/25
Date of Discharge: 03/25/25
-
Pending Results: No
Hospital Course
Discharging Physician : Dr. Montana
Disposition : Home
Primary care physician : Laura Bower
Principal Discharge diagnosis : Hydronephrosis of the left kidney secondary to left ureteral stone
Chronic Discharge diagnosis : Atrial fibrillation on Eliquis, GERD, hypertension, hypercholesterolemia, pacemaker status
Hospital Course : The patient is an 80-year-old male with a history of kidney stones who presented to the emergency department on March 21 with left flank pain and nausea. The patient's pain and nausea resolved after 1 IV dose of Toradol and
Zofran. CT of the abdomen and pelvis conducted on 03/21/2025 showed a 6 mm stone within the proximal left ureter associated with left hydroureteronephrosis and left proximal hydroureter. There was also noted multiple bilateral intrarenal stones.
Labs at that time were unremarkable except for an elevated white blood cell count of 11.3 and urinalysis showed 4+ occult blood with many urine bacteria detected. Urine culture was negative. The patient was discharged home with Vicodin and
cefdinir. The Vicodin helped manage the pain a little bit but the pain continued to return. The patient returned to the emergency department on 03/24/2025 with the same symptoms. Patient was given IV Toradol which successfully treated the patient's
pain. The patient was admitted to the hospital for left ureteral stone with mild hydronephrosis and was scheduled for the OR with urology for Left ureteroscopy, complex laser litholapaxy with extraction of multiple stones, left double-J stent
placement, and retrograde pyelogram.
The patient was given IV fluid support. Urinalysis with urine culture was collected. Patient's pain was managed with acetaminophen and Percocet. Patient was given tamsulosin 0.4 mg to help with urine output. Cefazolin was given for surgical
prophylaxis prior to being sent up to the OR. Nausea was managed with Zofran. And Eliquis was held prior to the procedure in the operating room. All oral meds were held prior to the procedure. During the procedure many stones were found. There
was a large number of stones found during the procedure and the patient tolerated the procedure. The patient had a Pineda catheter placed postoperatively which was subsequently removed the following morning. The patient was able to void on his own
numerous times without any difficulty. Creatinine improved to 1.1 following the procedure. Eliquis was restarted and the remainder of the home medications restarted as well. The patient needs to follow-up with urology within 2 to 4 weeks for
further evaluation and stent removal. The patient is back at his baseline and would like to be discharged.
The patient has reached maximal benefit from this hospital admission and is appropriate for discharge at the present time. The patient is medically stable and there are no barriers that would impede this patient from being safely discharged. The
patient should follow-up with his primary care provider within 1 week following discharge. The patient should follow-up with urology in the outpatient setting within 2 to 4 weeks after discharge for stent removal and further evaluation whether
further stone removal is warranted.
Important imaging findings :
- Abdomen/pelvis CT conducted on 03/21/2025:
1. 6 mm stone within the proximal left ureter, associated with mild left hydroureter nephrosis and left proximal hydroureter. Additional intrarenal stones as detailed above. No right hydronephrosis.
2. 1 cm hyperattenuating lesion within the left kidney, which may represent a hemorrhagic cyst. No solid renal mass was demonstrated on prior renal ultrasound dated 01/16/2025.
3. Small hiatal hernia. Small left inguinal hernia.
4. 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
- Abdominal x-ray conducted on 03/24/2025:
Stones project over the renal shadow on each side.. Stone projects over the expected location of the proximal to mid left ureter, measuring approximately 7 mm in diameter, grossly unchanged in position compared to prior CT.
Nonobstructed bowel gas pattern.
- Renal ultrasound conducted on 03/24/2025:
1. Moderate hydronephrosis of the left kidney. Stone within the proximal to mid left ureter measures 8 mm in diameter.
2. Additional intrarenal stones on each side as detailed above.
3. Prostatic enlargement.
Procedure findings :
- Left ureteroscopy, complex laser litholapaxy with extraction of multiple stones, and left double-J stent placement conducted on 03/24/2025:
Multiple left ureteral stones with high-grade obstruction (Steinstrasse with hydronephrosis obstruction).
ESTIMATED BLOOD LOSS: 2 mL.
SPECIMEN: Stones.
- Retrograde pyelogram conducted on 03/24/2025:
Fluoroscopic guidance for a urologic procedure. Please see the procedural report for further details.
Discharge Plan
-
Patient Disposition: Home (Routine Discharge)
Discharge Diagnosis/Procedures: Left Hydronephrosis secondary to Obstructing Left Urethral Stone
Condition: Good
Diet: No restrictions
Activity: No restrictions
Driving Restrictions: As prior to admission
Bathing Restrictions: None
Referrals:
Lenin Galloway MD [Active, Urology]
Referral Note: you have a stent expect frequncy urgency blood in urine bi need to ga back to op room in 2- 4 weeks to remove stant and if any stones remain we will address t=at that time [phone] to schedule next phase treatment
Laura Bower MD [Family Provider, Internal Medicine] - in less than 1 week
Prescriptions:
Continued
irbesartan 300 MG tablet
300 mg PO DAILY
Eliquis 5 MG tablet
5 mg PO BID
cefdinir 300 mg capsule
300 mg PO BID 5 Days Qty: 10 0RF
Rx Instructions:
for 5 days starting 03/21/25
tamsulosin [Flomax] 0.4 mg Capsule
0.4 mg PO QPM
hydrochlorothiazide 12.5 mg Tablet
12.5 mg PO DAILYPRN PRN (Reason: fluid)
Rx Instructions:
For SBP>140 DBP>90
cyanocobalamin (vitamin B-12) 1,000 mcg Tablet
1,000 mcg PO DAILY
rosuvastatin [Crestor] 10 mg Tablet
10 mg PO QPM
cholecalciferol (vitamin D3) [Vitamin D3] 25 mcg (1,000 unit) Tablet
25 mcg PO DAILY
coQ10 (ubiquinol) 100 mg Capsule
100 mg PO DAILY
hydrocodone-acetaminophen 5-325 mg tablet
1 tab PO Q6HPRN PRN (Reason: severe Pain)
atenolol 100 mg Tablet
100 mg PO BID
Discharge Orders:
Discharge Patient (As Directed); Ordered 03/25/25
Ordered By: Ally Humphrey
Discharge Date and Time
Discharge Date/Time: 03/25/25 14:37
Print Language: TAMAZIGHT
== END 2025-03-25 14:37 | disposition home or self-care (01) | DRG 661 ==
LOC: 2 SOUTH 10:29
PROVIDERS: Specialist; ADMITTING PHYSICIAN Internal Medicine; EMERGENCY PHYSICIAN Emergency Medicine; FAMILY PHYSICIAN Internal Medicine; OTHER PHYSICIAN Specialist
PROC: 0T778DZ Dilation of Left Ureter with Intraluminal Device, Via Natural or Artificial Opening Endoscopic (ICD-10-PCS; 2025-03-24)
PROC: BT1F1ZZ Fluoroscopy of Left Kidney, Ureter and Bladder using Low Osmolar Contrast (ICD-10-PCS; 2025-03-24)
PROC: 0TC78ZZ Extirpation of Matter from Left Ureter, Via Natural or Artificial Opening Endoscopic (ICD-10-PCS; 2025-03-24)
DX: N13.2 Hydronephrosis with renal and ureteral calculous obstruction (principal); N17.9 Acute kidney failure, unspecified; I10 Essential (primary) hypertension; I48.0 Paroxysmal atrial fibrillation; K21.9 Gastro-esophageal reflux disease without esophagitis; E78.00 Pure hypercholesterolemia, unspecified; R11.0 Nausea; N40.0 Benign prostatic hyperplasia without lower urinary tract symptoms; Z87.891 Personal history of nicotine dependence; Z87.442 Personal history of urinary calculi; Z79.899 Other long term (current) drug therapy; Z79.01 Long term (current) use of anticoagulants
CPT/HCPCS: 74019; 74176; 74420; 76000; 76770; 80048; 80053; 81003; 81015; 82365; 85025; 85027; 87086; 96374; 96375; 99285; A4300; C1894; C2617

== ENCOUNTER → 2025-04-13 08:30 | Outpatient (REF) | payer MEDICARE, SELFPAY | LOC: SDSPAT 08:30 | PROVIDERS: ATTENDING PHYSICIAN Specialist; FAMILY PHYSICIAN Internal Medicine Clinical Cardiac Electrophysiology | DX: N20.0 Calculus of kidney (principal) | CPT/HCPCS: 36415; 93005 ==

== ENCOUNTER 2025-04-16 06:17 | Day surgery (SDC) | payer MEDICARE, SELFPAY ==
[2025-04-13 13:57] VITALS: BMI 13.6
[2025-04-16 07:55] VITALS: BMI 13.6
[2025-04-16 08:11] VITALS: BP 171/99
[2025-04-16 12:45] VITALS: BP 102/63; BP 139/88; BP 171/99
[2025-04-16 13:00] VITALS: BP 124/63
[2025-04-16 13:15] VITALS: BP 141/73
[2025-04-16 14:07] VITALS: BP 165/88
== END 2025-04-16 15:30 | disposition home or self-care (01) ==
LOC: SDS 06:17
PROVIDERS: ATTENDING PHYSICIAN Specialist
DX: N20.2 Calculus of kidney with calculus of ureter (principal)
CPT/HCPCS: 52356; 74018; 76000; C1894; C2617; J1580